=== PATIENT | female | born 1995 ===

== ENCOUNTER 2024-09-02 05:10 | Day surgery (SDC) | payer OTHER ==
[2024-08-31 09:42] VITALS: BP 124/84
[2024-08-31 09:43] LABS: BASO % 0.4 % (0.1-1.2); EOS # 0.09 (0.04-0.54); EOS % 1.2 % (0.7-7.0); HEMOGLOBIN 14.2 g/dL (11.2-15.7); LYMPH % 39.8 % (19.3-53.1); MEAN CORPUSCULAR HEMOGLOBIN 30.3 pg (25.6-32.2); MONO # 0.59 (0.24-0.82); MONO % 7.6 % (4.7-12.5); NEUT # 3.96 (1.56-6.13); NEUT % 50.7 % (34.0-71.1); PLATELET COUNT 308 K/uL (163-369); RED BLOOD COUNT 4.68 M/uL (3.93-5.22); RED CELL DISTRIBUTION WIDTH 12.9 % (11.6-14.4)
[2024-08-31 10:04] LABS: INR 0.96; PARTIAL THROMBOPLASTIN TIME 29.1 SECONDS (22.0-34.0); PROTHROMBIN TIME 10.5 SECONDS (9.0-11.5)
[2024-08-31 10:31] LABS: PH,URINE 6.5 (5.0-8.0); URINE APPEARANCE Clear; URINE BILIRRUBIN Negative (NEGATIVE); URINE BLOOD Negative; URINE COLOR Yellow; URINE GLUCOSE Negative (NEGATIVE); URINE KETONE Negative (NEGATIVE); URINE LEUKOCYTE Negative; URINE NITRATE Negative; URINE PROTEIN Negative (NEGATIVE); URINE UROBILINOGEN 0.2 E.U./dl
[2024-08-31 10:36] LABS: RH POSITIVE
[2024-08-31 10:36] LABS: URINE BACTERIA 1117.2 uL (0.0-1933); URINE EPITHELIAL CELLS 14.2 uL (0.0-38.8); URINE WBC 16.7 uL (0.0-23.2)
[2024-08-31 10:42] LABS: ALBUMIN 3.9 gm/dL (3.4-5.0); BILIRUBIN TOTAL 0.32 mg/dL (0.3-1.2); CALCIUM 9.6 mg/dL (8.5-10.1); CREATININE SERUM 0.79 mg/dL (0.55-1.02); GFR 86.66; GLOBULINA 4.1 G/DL (2.4-3.5); POTASSIUM 3.85 mEq/L (3.5-5.1)
[2024-08-31 11:03] LABS: URINE CAST 0.73 uL (0.0-1.40)
[~2024-09-02] VITALS: Ht 154.9 cm; Wt 60.8 kg
[~2024-09-02 05:10] MED LIST: CAMILA0.35 MG PO; PROTONIX40 MG PO; SYNTHROID112 MCG PO
[2024-09-02] MEDS ORDERED: POVIDONE-IODINE 118 ML BOTT TOP ONE (11:19)
[2024-09-02] MEDS ORDERED: MORPHINE SULFATE 4 MG/ML VIAL IV PRN (13:00)
[2024-09-02] MEDS ORDERED: PROMETHAZINE HCL 50 MG/ML AMPUL IM ONE (13:00)
== END 2024-09-02 17:40 | disposition home or self-care (01) ==
LOC: CIR.AMB 05:10
PROVIDERS: ATTEND Student in an Organized Health Care Education/Training Program
DX: N85.01 Benign endometrial hyperplasia (principal); Z88.8 Allergy status to other drugs, medicaments and biological substances